=== PATIENT | female | born 1940 | race Caucasian/White ===

== ENCOUNTER 2024-07-16 12:57 | Emergency (ER) | payer OTHER ==
[~2024-07-16] VITALS: Ht 157.5 cm; Wt 72.6 kg
[2024-07-16 13:04] VITALS: BP_SYST 153; PULSE 80; RESP 18; TEMP 98.4; O2SAT 99
[2024-07-16] MEDS: MORPHINE 4 MG INJ. 4 MG/ML VIAL IVP ONE (13:31)
[2024-07-16] MEDS: ONDANSETRON HCL 4 MG/2 ML VIAL IVP ONE (13:32)
[2024-07-16 13:36] LABS: BASOPHILS # (AUTO) 0.1 K/uL (0.0-0.2); BASOPHILS % (AUTO) 1.1 % (0.0-2.0); EOSINOPHILS # (AUTO) 0.1 K/uL (0.0-0.4); EOSINOPHILS % (AUTO) 0.8 % (0.0-4.0); HEMOGLOBIN 12.5 g/dL (12.0-16.0); LYMPHOCYTES # (AUTO) 1.5 K/uL (1.0-5.5); LYMPHOCYTES % (AUTO) 20.7 % (20.5-51.5); MEAN CORPUSCULAR HEMOGLOBIN 31 pg (27-31); MEAN CORPUSCULAR HGB CONC 33 % (32-36); MEAN CORPUSCULAR VOLUME 93 fL (79.0-98.0); MONOCYTES # (AUTO) 0.6 K/uL (0.0-1.0); MONOCYTES % (AUTO) 9.1 % (1.7-9.3); NEUTROPHILS # (AUTO) 4.9 K/uL (1.8-7.7); NEUTROPHILS % (AUTO) 68.3 % (40.0-70.0); PLATELET COUNT (AUTO) 305 K/uL (130-430); RED BLOOD CELL COUNT(AUTO) 4.06 MIL/uL (4.2-6.2); RED CELL DISTRIBUTION WIDTH 14.3 % (9.0-15.0); WHITE BLOOD COUNT (AUTO) 7.2 K/uL (4.8-10.8)
[2024-07-16 13:53] LABS: ALANINE AMINOTRANSFERASE 52 U/L (12-78); ALBUMIN 4.2 g/dL (3.4-4.8); ANION GAP 12 (5-15); ASPARTATE AMINOTRANSFERASE 36 U/L (10-37); BILIRUBIN,DIRECT 0.2 mg/dL (0.0-0.3); CALCIUM 9.7 mg/dL (8.4-11.0); CARBON DIOXIDE 28 mmol/L (23-29); CHLORIDE 102 mmol/L (98-107); CREATININE 0.88 mg/dL (0.55-1.30); GLUCOSE 92 mg/dL (74-106); LIPASE 54 U/L (16-77); POTASSIUM 4.1 mmol/L (3.5-5.1); SODIUM SERUM 142 mmol/L (136-145); TOTAL BILIRUBIN 0.6 mg/dL (0.0-1.0); TOTAL PROTEIN, SERUM 7.7 g/dL (6.4-8.3); UREA NITROGEN, BLOOD 24 mg/dL (8-21)
[2024-07-16 14:47] LABS: BILIRUBIN,URINE NEGATIVE (NEGATIVE); BLOOD, URINE NEGATIVE (NEGATIVE); CLARITY/URINE CLEAR (CLEAR); COLOR,URINE YELLOW (YELLOW); GLUCOSE,URINE NEGATIVE (NEGATIVE); KETONES,URINE 1+ (NEGATIVE); LEUKOCYTE ESTERASE ,URINE NEGATIVE (NEGATIVE); NITRITE, URINE NEGATIVE (NEGATIVE); PROTEIN URINE NEGATIVE (NEGATIVE); UROBILINOGEN,URINE 0.2 (0.2-1.0)
[2024-07-16 15:55] VITALS: BP_SYST 110; PULSE 70; RESP 18; TEMP 98.4; O2SAT 95
[2024-07-16] MEDS ORDERED: OMEP40CA20 PO (16:16)
[2024-07-16] MEDS ORDERED: ONDA8TAB60 PO (16:16)
== END 2024-07-16 16:32 | disposition home or self-care (01) ==
LOC: SED 12:57
DX: R10.13 Epigastric pain (principal); R11.0 Nausea; I10 Essential (primary) hypertension; Z88.3 Allergy status to other anti-infective agents; Z96.659 Presence of unspecified artificial knee joint
CPT/HCPCS: 99285; 74176; 71045; 80076; 80048; 81001; 83880; 83690; 85025; 84484; 36415; 93005; 81003; J2405; J2270